=== PATIENT | male | born 1995 | race African-American/Black ===

== ENCOUNTER 2019-11-11 03:53 | Emergency (ER) | payer OTHER ==
[~2019-11-11] VITALS: Ht 175.3 cm; Wt 72.6 kg
[2019-11-11] MEDS ORDERED: HYDROCODON-ACE1 EAC8 PO (04:32)
[2019-11-11] MEDS ORDERED: PENICILLIN VK500 MG PO (04:32)
[2019-11-11 04:43] VITALS: BP 123/83
== END 2019-11-11 04:43 | disposition home or self-care (01) ==
LOC: M.ERS 03:53
DX: K08.89 Other specified disorders of teeth and supporting structures (principal); F17.210 Nicotine dependence, cigarettes, uncomplicated